=== PATIENT | male | born 1970 | race American Indian/Alaskan Native ===

== ENCOUNTER 2018-04-23 20:00 | Emergency (ER) | payer OTHER, BC ==
[2018-04-23 20:22] VITALS: RESP 18; TEMP 98
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
[2018-04-24 00:04] VITALS: BP 138/82; PULSE 65; O2SAT 100
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
== END 2018-04-23 22:41 | disposition home or self-care (01) ==
LOC: ED 20:00
DX: S16.1XXA Strain of muscle, fascia and tendon at neck level, initial encounter (principal); S43.402A Unspecified sprain of left shoulder joint, initial encounter; V49.9XXA Car occupant (driver) (passenger) injured in unspecified traffic accident, initial encounter; M62.838 Other muscle spasm; J32.2 Chronic ethmoidal sinusitis; J32.3 Chronic sphenoidal sinusitis
CPT/HCPCS: 70450; 72125; 73030; 99284; L3650